=== PATIENT | female | born 1985 | race Caucasian/White ===

== ENCOUNTER 2016-06-20 17:48 | Emergency (ER) | payer SELFPAY ==
--- NOTE | ~2016-06-20 | ER ---
PATIENT'S NAME: NELY SHEPPARD [facility] AGE: 31 Y [address] ROOM: [place] [address] LOCATION: [facility] ADMIT DATE: 06/20/2016 ER/Outpatient Report DISCHARGE DATE: 06/20/2016 FAMILY PHYSICIAN: Man Crews ATTENDING PHYSICIAN: Wesley Johnson Time of Arrival: 1758 hours. Time of Evaluation: 1758 hours. CHIEF COMPLAINT: Vaginal bleeding. HISTORY OF PRESENT ILLNESS: The patient states she is approximately 12 weeks' . Last night around 10 o'clock, she began having nausea and vomiting with vaginal bleeding when she urinated. She states she has had some cramping that began approximately 1 hour prior to arrival. She reports that she did call and talk with Man Crews, her primary provider's office today. They had her come in, and she had lab work done, but she was not seen. She is concerned because she continues to have the spotting when she wipes, and the cramping started, which made her nervous also. She states she has not noticed any leaking of fluid. Does not have any pain with urination. Reports her last period was in March. Her due date is approximately on 01/01/2017. She is a 5, para 2, AB2. ALLERGIES: SHE HAS NO KNOWN ALLERGIES. CURRENT MEDICATIONS: vitamins. PAST MEDICAL HISTORY: Benign. PAST SURGICAL HISTORY: Negative. SOCIAL HISTORY: She lives in [place]. Does smoke 1 to 2 cigarettes per day. Denies use of drugs or alcohol. She is here in the ER tonight with her mother. REVIEW OF SYSTEMS: All negative other than those mentioned in the HPI. PHYSICAL EXAMINATION: PATIENT'S NAME: NELY SHEPPARD [facility] AGE: 31 Y [address] ROOM: [place] [address] LOCATION: [facility] ADMIT DATE: 06/20/2016 ER/Outpatient Report DISCHARGE DATE: 06/20/2016 FAMILY PHYSICIAN: Man Crews ATTENDING PHYSICIAN: Wesley Johnson VITAL SIGNS: She states she is 5 feet 2 inches, she weights 103.1 kg, blood pressure is 141/82, pulse of 82, respirations 20, temperature of 98.7, O2 saturation is 99% on room air. GENERAL: She is awake, alert, and oriented x4. SKIN: Her skin is pink, warm, and dry. RESPIRATIONS: Even and nonlabored. Lung sounds are clear throughout. HEART: Regular rate and rhythm. ABDOMEN: Soft and nondistended. Bowel sounds are present. LABORATORY DATA AND X-RAYS: Lab work was completed. Ultrasound was done. solar energy technician reports that the cervix is closed. The placenta is low riding, but no other cause for the bleeding. Heart rate is 160-166, due date is 12/27/2016. Lab work shows CBC within normal limits. Serum HCG is 45,075.0, which is consistent with 12 weeks. Her blood type is O positive. Pelvic exam was completed. Cervix is closed. She does have a yellow green color drainage coming from the cervix. Culture was obtained. IMPRESSION: Vaginal cramping, vaginal spotting, 12 weeks' , threatened . PLAN: Home. Rest. Fluids. Discussed with the patient. No sexual intercourse. Do not put anything in the vaginal area. Tylenol as needed. Follow up with Geoffrey Crews tomorrow. She verbalized understanding. SHONA AZAR APRN FOR MD CAREY LANDEROS/kylie /[id number] d: 06/21/16 0120 t: 06/24/16 1733, OUTPATIENT REPORT
[2016-06-20 18:24] LABS: BASOPHIL % 0.3 %; EOSINOPHIL # 0.1 K/uL (0.0-0.5); EOSINOPHIL % 1.4 %; HEMATOCRIT 38.4 % (33.0-46.0); HEMOGLOBIN 13.2 g/dL (11.0-15.0); IMMATURE GRANULOCYTE # 0.1 K/uL (0.0-0.3); IMMATURE GRANULOCYTE % 0.6 %; LYMPHOCYTE # 2.1 K/uL (0.8-4.0); LYMPHOCYTE % 23.5 %; MCH 30.4 pg (27.0-34.0); MCHC 34.4 gm/dL (32.0-36.5); MCV 88.5 fl (83.0-98.0); MONOCYTE # 0.5 K/uL (0.0-1.0); MONOCYTE % 5.4 %; MPV 10.9 fl (9.4-12.4); NEUTROPHIL # (ANC) 6.2 K/uL (1.8-7.8); NEUTROPHIL % 68.8 %; NRBC % 0 /100WBC (0-0.00); PLATELET COUNT 197 K/uL (150-450); RBC 4.34 M/uL (3.50-5.00); RDW-CV 12.2 % (11.9-14.6)
[2016-06-20 18:46] LABS: ALBUMIN 3.4 gm/dL (3.5-5.0); ALK PHOS 31 IU/L (33-138); ALT 15 IU/L (12-78); ANION GAP 13.8 (10.0-19.0); AST 10 IU/L (10-40); BLOOD UREA NITROGEN 5 mg/dL (6-24); CALCIUM 8.8 mg/dL (8.5-10.5); CHLORIDE 110 mMol/L (96-110); CO2 21 mMol/L (22-32); CREATININE 0.5 mg/dL (0.5-1.1); ESTIMATED GFR (MDRD EQUATION) > 60; POTASSIUM 3.8 mMol/L (3.7-5.1); SODIUM 141 mMol/L (135-145); TOTAL BILIRUBIN 0.3 mg/dL (0.0-1.5); TOTAL PROTEIN 7.1 g/dL (6.0-8.4)
== END 2016-06-20 19:34 | disposition disaster alternative care site (69) ==
LOC: GMED 17:48
PROVIDERS: Nurse Practitioner Family
DX: O20.0 Threatened abortion (principal); O99.331 Smoking (tobacco) complicating pregnancy, first trimester; F17.210 Nicotine dependence, cigarettes, uncomplicated; Z3A.12 12 weeks gestation of pregnancy